=== PATIENT | female | born 1965 | race Caucasian/White ===

== ENCOUNTER 2016-11-07 08:22 | Day surgery (SDC) | payer BC ==
[~2016-11-07] VITALS: Ht 160 cm; Wt 67.3 kg
[~2016-11-07 08:22] MED LIST: MOBIC 7.5MG7.5 MG PO; NORCO 325 MG-7.1 TAB PO
[2016-11-07 09:07] VITALS: BP 102/69; PULSE 80; TEMP 97.5
[2016-11-07] MEDS ORDERED: TRIAMCINOLONE A15 G1 TP (09:10)
[2016-11-07] MEDS ORDERED: MULTIPLE VITAMI1 CAP PO (09:11)
[2016-11-07] MEDS ORDERED: NATURAL IRON65 MG PO (09:11)
[2016-11-07] MEDS ORDERED: B COMPLEX #11 TA1 PO (09:11)
[2016-11-07] MEDS ORDERED: VITAMIN D1000 IU PO (09:11)
[2016-11-07] MEDS ORDERED: TYLENOL 8 HR PO (09:12)
[2016-11-07] MEDS ORDERED: NORCO 325 MG-51 TAB PO (12:12)
[2016-11-07 12:15] VITALS: BP 110/68; PULSE 62; TEMP 97.2
[2016-11-07 12:30] VITALS: BP 109/88; PULSE 59
[2016-11-07 12:45] VITALS: BP 106/58; PULSE 59
== END 2016-11-07 13:31 | disposition home or self-care (01) ==
LOC: SDCO 08:22
DX: D17.1 Benign lipomatous neoplasm of skin and subcutaneous tissue of trunk (principal); Z87.891 Personal history of nicotine dependence; Z85.3 Personal history of malignant neoplasm of breast
CPT/HCPCS: J0690; J2704; J3010; J7120

== ENCOUNTER → 2021-02-08 | Outpatient (CLI) | payer BC ==
[~2021-02-08] MED LIST changes: +B COMPLEX #11 TA1 PO; +BENADRYL25 M2 PO; +CRANBERRY 100 M1 SGL PO; +GALZIN50 MG PO; +GLUCOSAMINE & C1 TAB PO; +LIFE PO; +MULTIPLE VITAMI1 CAP PO; +NATURAL IRON65 MG PO; +NORCO 325 MG-51 TAB PO; +OMEGA-31 SGL PO; +ONE-A-DAY ESSE1 EACH PO; +PREDNISONE20 MG PO; +THE MEDICINE S200 M2 PO; +TRIAMCINOLONE A15 G1 TP; +TURMERIC500 MG PO; +TYLENOL 8 HR PO; +ULTIMATE EYE SUPPORT PO; +VITAMIN B COMPL1 SGL PO; +VITAMIN C500 MG; +VITAMIN D1000 IU PO; +VITAMIN D31000 I1 PO; +ZYRTEC 10MG10 MG PO; +[UNRECOGNIZED DRUG - OTHER] PO; +[UNRECOGNIZED DRUG - OTHER] PO; +[UNRECOGNIZED DRUG - OTHER] PO; +[UNRECOGNIZED DRUG - OTHER] PO; +[UNRECOGNIZED DRUG - OTHER] PO; +[UNRECOGNIZED DRUG - OTHER] PO; +[UNRECOGNIZED DRUG - OTHER] PO
[2021-02-08 11:28] LABS: BASO # 0.1 (0.0-0.2); BASO % 0.9 % (0.0-2.0); EOS # 0.5 (0.0-0.7); EOS % 7.3 % (0-4.0); GRAN % 60.9 % (42.2-75.2); HEMATOCRIT 40.1 % (37.0-47.0); HEMOGLOBIN 13.4 g/dl (12.5-16.0); LYMPH # 1.5 (1.2-3.4); LYMPH % 23.4 % (20.0-51.0); MEAN CELL VOLUME 94 fl (80.0-100.0); MEAN CORPUSCULAR HEMOGLOBIN 31 pg (27.0-31.0); MEAN CORPUSCULAR HGB CONC 33 g/dl (33.0-37.0); MEAN PLATELET VOLUME 9.1 fl (7.4-10.4); MONO # 0.5 (0.1-0.6); MONO % 7.3 % (1.7-9.3); PLATELET COUNT 349 K/mm3 (130-400); RED BLOOD COUNT 4.28 M/mm3 (4.10-5.30); REDCELL DISTRIBUTION WIDTH-CV 13.1 % (11.5-14.5)
[2021-02-08 23:49] LABS: PROCALCITONIN <0.05 ng/mL (0.00-0.09)
[2021-02-09 17:30] LABS: TB GOLD INTERPRETATION Negative (Negative)
[2021-02-13 15:18] LABS: HISTOPLASMA ID Negative (Negative); HISTOPLASMA MYCELIAL Negative (Negative); HISTOPLASMA YEAST Negative (Negative)
[2021-02-14 16:06] LABS: COCCIDIOIDES AB IGG Negative (Negative); COCCIDIOIDES AB IGM Negative (Negative); COCCIDIOIDES CF Negative (Negative)
== END ==
LOC: COL.LAB 10:31
PROVIDERS: Internal Medicine Pulmonary Disease
DX: R91.8 Other nonspecific abnormal finding of lung field (principal)

== ENCOUNTER 2021-02-17 09:00 | Outpatient (CLI) | payer BC ==
[~2021-02-17] VITALS: Ht 157.5 cm; Wt 63.0 kg
[2021-02-17] VITALS (16 sets, daily range): BP systolic 111–161; BP diastolic 68–85; PULSE 57–78
--- NOTE | 2021-02-17 09:50 | NUR ---
PT WAS TAKEN TO CT AND PLACED INTO POSITION. MONITORING EQUIPMENT PLACED.
--- NOTE | 2021-02-17 10:48 | NUR ---
Pt returned from procedure,report from vidhya.
--- NOTE | 2021-02-17 13:30 | NUR ---
Discharge instructions given to pt.pt verbalizes understanding.INT removed,catheter tip intact.Pt escorted out via wheelchair by this nurse.
== END 2021-02-17 16:01 | disposition home or self-care (01) ==
LOC: COL.RAD 09:00
DX: R91.8 Other nonspecific abnormal finding of lung field (principal)
CPT/HCPCS: 32108